=== PATIENT | female | born 2000 | race Caucasian/White ===

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

== ENCOUNTER 2019-01-13 11:10 | Emergency (ER) | payer OTHER ==
[2019-01-13] MEDS ORDERED: IBUPROFEN 200 MG TAB PO ONE (12:55)
[2019-01-13] MEDS ORDERED: DEXAMETHASONE 10 MG/ML VIAL PO ONE (12:55)
--- NOTE | 2019-01-13 12:56 | EDPHY ---
General Time Seen by Provider: 01/13/19 12:40 Narrative: CLINICAL IMPRESSION: Strep pharyngitis ASSESSMENT/PLAN: Patient is a 18-year-old female with no significant medical history who presents to the emergency department with complaints of a sore throat. Patient is afebrile and non toxic appearing, she is in no acute distress. Her vital signs were reviewed, there were no clinical findings to suggest sepsis or serious systemic illness. On physical exam there is bilateral tonsillar enlargement with exudate. There was no stridor, drooling, hypoxia, respiratory distress or trismus. Her phonation was normal without hot potato voice. Rapid strep positive. Patient treated with ibuprofen and dexamethasone. She has not been on any recent antibiotics, will treat with penicillin. She will continue taking ibuprofen and/or Tylenol as needed for pain. There was no evidence of airway obstruction, uvular deviation, retropharyngeal abscess, peritonsillar abscess, deep space infection, angioedema, Derek angina, epiglottitis, sinusitis, meningitis or pneumonia. On repeat examination the patient is well- appearing and in no acute distress, her vital signs remained normal. Strict return precautions discussed- she is to return should she develop worsening sore throat, drooling, change in voice, inability to pass secretions or any other concerning symptom. Patient verbalizes understanding and is in agreement with this plan. DIFFERENTIAL DX: Differential diagnosis includes but not limited to and in no certain order strep pharyngitis, retropharyngeal abscess, peritonsillar abscess, epiglottitis , ANUG, Derek's angina ED COURSE: 1215: Discussed with Dr. Conde CHIEF COMPLAINT: Sore throat HPI: Patient is a 18-year-old female who presents to the emergency department with decreased appetite, nausea and sore throat. Patient reports 2 nights ago she started to develop a mild sore throat which has been worsening. She finds it difficult to swallow however she is able to pass secretions, liquids and solids. Patient has not taken her temperature but has felt hot and cold. She has low-grade nausea and decreased appetite. She denies any vomiting. She denies any headache, dizziness, ear pain, runny nose or congestion. She has had no neck stiffness. She has had a mild cough over the last several days. She denies any chest pain, shortness of breath or abdominal pain. No recent antibiotic use. PMH: Denies Pertinent Past Surgical History: Denies Family History: Noncontributory Social History: Occasional smoker, occasional alcohol, denies illicit drug use REVIEW OF SYSTEMS: All other systems negative Constitutional: Subjective fever, decreased appetite. Eyes: No discharge, vision change. ENT: Sore throat. Cardiovascular: No chest pain, no palpitations. Respiratory: Cough. No shortness of breath. Gastrointestinal: Nausea. No abdominal pain, no vomiting, diarrhea. Genitourinary: No hematuria, dysuria, flank pain, pelvic pain. Musculoskeletal: No back pain, joint swelling, joint pain, myalgias. Skin: No rashes, color change. Neurological: No headache, dizziness, weakness. PHYSICAL EXAM: General Appearance: Well-appearing and in no acute distress. HENT: Normocephalic, atraumatic. Bilateral external ears are normal. Bilateral tympanic membranes are normal with pearly holland reflex. Nares are clear, mucosa is pink. Bilateral tonsils are symmetrically enlarged with exudate, erythematous, uvula is midline. Her phonation is normal, no stridor. The dentition is normal. Eyes: PERRLA, no acute vision change, nystagmus, swelling, discharge, pain or photosensitivity. Conjunctiva pink, no pallor or injection. Neck: Supple, nontender, no lymphadenopathy, no midline pain, FROM, no meningismus. Respiratory: There are no retractions, lungs are clear to auscultation. Cardiac: Regular rate and rhythm, no murmurs or gallops. Gastrointestinal: Abdomen is soft, nontender, bowel sounds normal, no masses/ hernia, no rigidity, guarding or focal peritoneal findings. Neurological: Alert and oriented x 3, CN 2-12 grossly intact, normal gait no ataxia, DTR's intact, normal sensation and strength. Skin: Warm, dry, no rashes, no nodules on palpation. Musculoskeletal: Extremities are symmetrical, full range of motion, no tenderness, deformity, swelling, or erythema. Psychiatric: Patient is oriented X 3, there is no agitation. MEDICAL DECISION MAKING: Patient was seen independently. Secondary supervising physician at time of evaluation was Dr. Conde, she did not evaluate this patient. Diagnosis: Strep pharyngitis. New, requires workup Summary: See Assessment and Plan for summary of ED visit Clinical lab tests: ordered / reviewed. Independent visualization of images, tracing, or specimens: Not applicable. Decision to obtain medical records or history from someone other than the patient: No Review / Summarize previous medical records: Yes Discussed patient with another provider: Yes, Dr. Conde Patient Progress: Stable discharge. - Objective Vital Signs: Initial Vital Signs Temperature (C) 37.3 C 01/13/19 11:13 Heart Rate 82 01/13/19 11:13 Respiratory Rate 16 01/13/19 11:13 Blood Pressure 123/75 H 01/13/19 11:13 O2 Sat (%) 97 01/13/19 11:13 O2 Delivery Mode Room Air Allergies/Adverse Reactions: No Known Allergies Allergy (Unverified 08/12/17 22:05) Home Medications: Medication Instructions Recorded Controll Pill 08/20/17 Accucaine Kit 01/13/19 Penicillin V Potassium [Penicillin 500 mg PO BID 10 Days tab 01/13/19 VK] Medications Given: Discontinued Medications Dexamethasone (Decadron Injection) 10 mg PO EDNOW ONE Stop: 01/13/19 12:56 Last Admin: 01/13/19 13:14 Dose: Not Given Dexamethasone (Decadron) 10 mg PO EDNOW ONE Stop: 01/13/19 13:00 Last Admin: 01/13/19 13:04 Dose: 10 mg Ibuprofen (Motrin) 400 mg PO EDNOW ONE Stop: 01/13/19 12:56 Last Admin: 01/13/19 13:04 Dose: 400 mg Departure - Departure Disposition: Home, Routine, Self-Care Clinical Impression: Strep pharyngitis Condition: Good Instructions: Pharyngitis (ED) Additional Instructions: DISCHARGE INSTRUCTIONS FROM YOUR DOCTOR Thank you for visiting our emergency department today. Please keep in mind that discharge from the emergency department does not mean that there is nothing wrong - it simply means that we have not identified an emergency condition that requires further evaluation or treatment in the hospital. You should always plan to follow up with primary care for re-evaluation of your condition in the next 2-3 days. Rest, push non-diuretic, non-caffeinated fluids, consume a healthy diet, all to help support your immune system fight infection. Consider running a coolmist humidifier in the bedroom. Consider warm salt water gargles for sore throat. Consider over the counter Mucinex for congestion and/or cough as directed. For pain control: You may take Tylenol, I recommend 500-1000 mg every 6-8 hours as needed. Take with food and a full glass of water. Stop taking if this is upsetting her stomach. Do not exceed 4000 mg in a 24 hr period. You may also take ibuprofen, recommend 400 mg every 6 hr. Take with food and a full glass of water. Stop taking if this upsets her stomach. Do not exceed 2400 mg in a 24 hr period. Strep throat is contagious, please wash her hands regularly. Please take your antibiotics as directed for the next 10 days, consider taking a probiotic as this can cause diarrhea. Schedule a follow-up appointment with your primary care physician in the next 2- 3 days for re-evaluation, sooner for any new concerns. Return for high fever, shaking chills, severe headache, facial redness or swelling, drainage from your ears, difficulty breathing or swallowing, throat tightness, drooling, change in voice, inability to open your mouth normally, severe neck pain, neck stiffness, shortness of breath, wheezing, noisy breathing , coughing up blood, chest pain, vomiting, diarrhea, bloody stools, decreased urine output or other concerns for dehydration, bloody urine, rash, dizziness, weakness, fainting, or for any other new, worsening or worrisome symptoms. People present with illnesses and injuries in different ways, and it is always possible that we have missed something. You may always return for re-evaluation if symptoms worsen or if they are not improving or if you develop new/different symptoms. Again, thank you for choosing our emergency department. We hope that you feel better. Referrals: Rodrigo Botello MD [[facility] [place] Primary Care Provider] - As per Instructions (Please establish care with a primary care provider if you have not done so.) Prescriptions: Penicillin V Potassium [Penicillin VK] 500 mg PO BID 10 Days tab
[2019-01-13] MEDS ORDERED: DEXAMETHASONE 4 MG TAB PO ONE (12:59)
[2019-01-13 13:07] VITALS: BP 130/68
== END 2019-01-13 13:39 | disposition home or self-care (01) ==
DX: J02.0 Streptococcal pharyngitis (principal)